=== PATIENT | female | born 1960 | race Caucasian/White ===

== ENCOUNTER 2016-05-16 06:27 | Day surgery (SDC) | payer BC ==
--- NOTE | ~2016-05-16 | EGD ---
EGD REPORT [facility] [address] [place] [address] NAME: MAXIMUS ZAVALA : [birth year] STATUS : REG [facility] PAT#: [id number] AGE: 56 ADM/REG DATE : 05/16/16 MR#: [id number] REPORT SERV DATE: 05/16/16 DICTATED BY: DONOVAN CHOUDHURY DATE: 05/16/16 REPORT STATUS : Draft TRANSCRIBED BY: [employer] DATE: 05/16/16 Endoscopy Center Patient Name: Maximus Zavala Date of : 1960 Attending MD: DONOVAN CHOUDHURY MD Procedure Date No Time: 05/16/2016 Procedure: Colonoscopy Indications: High risk colon cancer surveillance: Personal history of colonic polyps, FH of Colon Cancer - 1st degree relative Referring MD: PIERRE CHUA Medicines: as per anesthesia Complications: No immediate complications. Procedure: Pre-Anesthesia Assessment: - ASA Grade Assessment: II - A patient with mild systemic disease. After I obtained informed consent, the scope was passed under direct vision. Throughout the procedure, the patient's blood pressure, pulse, and oxygen saturations were monitored continuously. The [facility] [id number] was introduced through the anus and advanced to the cecum, identified by appendiceal orifice and ileocecal valve. The colonoscopy was performed without difficulty. The patient tolerated the procedure. The quality of the bowel preparation was adequate to identify polyps. Findings: The perianal and digital rectal examinations were normal. Many small and large-mouthed diverticula were found in the sigmoid colon. Internal hemorrhoids were found during endoscopy and were mild. Impression: - Diverticulosis in the sigmoid colon. - Internal hemorrhoids. Recommendation: - Repeat colonoscopy in 5 years for surveillance. Procedure Code(s): --- Professional --- 64548, Colonoscopy, flexible, proximal to splenic flexure; diagnostic, with or without collection of specimen(s) by brushing or washing, with or without colon decompression (separate procedure) Diagnosis Code(s): --- Professional --- K64.8, Other hemorrhoids K57.30, Diverticulosis of large intestine without perforation or abscess without bleeding EGD REPORT [facility] [address] [address] NAME: MAXIMUS ZAVALA : [birth year] STATUS : REG [facility] PAT#: [id number] AGE: 56 ADM/REG DATE : 05/16/16 MR#: [id number] REPORT SERV DATE: 05/16/16 DICTATED BY: DONOVAN CHOUDHURY. DATE: 05/16/16 REPORT STATUS : Draft TRANSCRIBED BY: [employer] DATE: 05/16/16 Z86.010, Personal history of colonic polyps Z80.0, Family history of malignant neoplasm of digestive organs CPT copyright 2013 [employer]. All rights reserved. The codes documented in this report are preliminary and upon light rail train operator review may be revised to meet current compliance requirements. DONOVAN CHOUDHURY MD 05/16/2016 8:02 AM This report has been signed electronically. Number of Addenda: 0 Note Initiated On: 05/16/2016 7:26 AM Scope Withdrawal Time 0 hours 8 minutes 16 seconds [address] [id number]
[~2016-05-16 06:27] MED LIST: ASAB PO; NORV5 PO; ZOCOR20 PO
== END 2016-05-16 23:59 | disposition home or self-care (01) ==
LOC: DMU 06:27
PROVIDERS: Internal Medicine Gastroenterology
PROC: 0DJD8ZZ Inspection of Lower Intestinal Tract, Via Natural or Artificial Opening Endoscopic (ICD-10-PCS; principal; 2016-05-16 08:00)
DX: Z12.11 Encounter for screening for malignant neoplasm of colon (principal); K57.90 Diverticulosis of intestine, part unspecified, without perforation or abscess without bleeding; K64.8 Other hemorrhoids; K57.30 Diverticulosis of large intestine without perforation or abscess without bleeding; I10 Essential (primary) hypertension; E78.00 Pure hypercholesterolemia, unspecified; I21.3 ST elevation (STEMI) myocardial infarction of unspecified site; M62.838 Other muscle spasm; M19.90 Unspecified osteoarthritis, unspecified site; Z80.0 Family history of malignant neoplasm of digestive organs; Z86.010 Personal history of colon polyps; Z88.2 Allergy status to sulfonamides; Z88.1 Allergy status to other antibiotic agents; Z90.89 Acquired absence of other organs; Z79.899 Other long term (current) drug therapy; Z79.82 Long term (current) use of aspirin